=== PATIENT | male | born 1960 | race Caucasian/White ===

== ENCOUNTER 2017-09-28 22:50 | Emergency (ER) | payer OTHER ==
[2017-09-28] MEDS: methylPREDNISolone INJ 125 MG/2 ML VIAL (J2930) IM (23:51)
== END 2017-09-29 00:42 | disposition home or self-care (01) ==
LOC: M ED 22:50
DX: L27.0 Generalized skin eruption due to drugs and medicaments taken internally (principal); E78.5 Hyperlipidemia, unspecified; F17.200 Nicotine dependence, unspecified, uncomplicated; Z79.899 Other long term (current) drug therapy
CPT/HCPCS: J2930

== ENCOUNTER 2019-08-22 23:29 | Emergency (ER) | payer OTHER ==
[~2019-08-22] VITALS: Ht 177.8 cm; Wt 100.0 kg
[2019-08-22 23:29] VITALS: BP 165/78
[~2019-08-22 23:29] MED LIST: ATOR1TAB19 PO; KEFL500C17 PO; PRED20TA PO
[2019-08-23] MEDS ORDERED: LIDOCAINE 5% (LIDODERM) PATCH TD ONE
[2019-08-23] MEDS ORDERED: ACETAMINOPHEN 325 MG TAB PO ONE
[2019-08-23 00:28] LABS: APPEARANCE, URINE CLEAR (CLEAR); BACTERIA, URINE AUTO NEGATIVE (NEGATIVE); BILIRUBIN, URINE AUTO NEGATIVE (NEGATIVE); BLOOD, URINE BLOOD NEGATIVE (NEGATIVE); COLOR, URINE YELLOW (YELLOW); GLUCOSE, URINE (UA) AUTO NEGATIVE (NEGATIVE); KETONE, URINE AUTO NEGATIVE (NEGATIVE); LEUKOCYTE ESTERASE, URINE AUTO NEGATIVE (NEGATIVE); NITRITE, URINE AUTO NEGATIVE (NEGATIVE); PROTEIN, URINE AUTO NEGATIVE (NEGATIVE); RBC, URINE AUTO 5 /HPF (0-3); SPECIFIC GRAVITY URINE AUTO 1.016 (1.002-1.035); SQUAMOUS EPITHELIAL CELL UR AU 0 /HPF (0-6); UROBILINOGEN, URINE AUTO 0.2 mg/dL (0.0-2.0); WBC, URINE AUTO 2 /HPF (0-3)
[2019-08-23] MEDS ORDERED: ALEV220T22 PO (00:41)
[2019-08-23] MEDS ORDERED: LIDO5DIS41 TD (00:43)
[2019-08-23] MEDS ORDERED: ROBA750T4 PO (00:43)
--- NOTE | 2019-08-23 02:00 | REP ---
Clinical: Trauma/fall. Technique: AP, lateral, bilateral oblique, and coned-down views. Findings: Lateral view demonstrates chronic L5 spondylolysis with L5-L1 spondylolisthesis of approximately 9.5 mm. Mild/moderate multilevel degenerative changes are also noted throughout the remainder examination including marginal spurring, endplate sclerosis and disc space narrowing. No acute fracture / compression injury. Impression: 1. Chronic-appearing spondylolysis and spondylolisthesis at L5-S1. 2. Mild/moderate multilevel degenerative spondylosis. 3. No acute fracture / compression injury. Electronically Signed by Ehsan Munroe MD 08/23/2019 01:51 A
[2019-08-23] MEDS ORDERED: **NOTE PATIENT COMMENT** MISC XX ONE (12:00)
== END 2019-08-23 00:51 | disposition home or self-care (01) ==
LOC: M ED 23:29
DX: S30.0XXA Contusion of lower back and pelvis, initial encounter (principal); M25.522 Pain in left elbow; W01.0XXA Fall on same level from slipping, tripping and stumbling without subsequent striking against object, initial encounter; Y92.019 Unspecified place in single-family (private) house as the place of occurrence of the external cause; E78.5 Hyperlipidemia, unspecified; M47.817 Spondylosis without myelopathy or radiculopathy, lumbosacral region; F17.210 Nicotine dependence, cigarettes, uncomplicated; Z88.1 Allergy status to other antibiotic agents; Z88.8 Allergy status to other drugs, medicaments and biological substances; Z79.899 Other long term (current) drug therapy

== ENCOUNTER → 2020-09-03 | Outpatient (CLI) | payer SELFPAY ==
[~2020-09-03] MED LIST changes: +ALEV220T22 PO; +LIDO5DIS41 TD; +ROBA750T4 PO
== END ==
LOC: M LABSMTC 10:10
PROVIDERS: ATTEND Pediatrics
DX: Z20.822 Contact with and (suspected) exposure to COVID-19 (principal)

== ENCOUNTER → 2022-04-06 | Outpatient (CLI) | payer OTHER | LOC: M PLAIMG 06:59 | PROVIDERS: ATTEND Family Medicine | DX: M54.2 Cervicalgia (principal); M25.78 Osteophyte, vertebrae ==

== ENCOUNTER → 2022-05-13 | Outpatient (CLI) | payer OTHER | LOC: M CARPUL 11:06 | PROVIDERS: ATTEND Internal Medicine Cardiovascular Disease | DX: R06.83 Snoring (principal); R01.1 Cardiac murmur, unspecified | CPT/HCPCS: 76376; 93306; 93356; G0399 ==

== ENCOUNTER 2023-07-16 15:06 | Emergency (ER) | payer MEDICARE, OTHER ==
[~2023-07-16] VITALS: Ht 175.3 cm; Wt 97.7 kg
[2023-07-16] MEDS ORDERED: ASPI-226 (15:39)
[2023-07-16] MEDS ORDERED: PERCOCET 5MG/325MG TAB PO ONE (17:25)
[2023-07-16] MEDS ORDERED: PERC5TAB12 PO (18:00)
[2023-07-16 18:39] VITALS: BP 176/96; TEMP 97.8; O2SAT 96
== END 2023-07-16 18:41 | disposition home or self-care (01) ==
LOC: M ED 15:06
DX: S92.012A Displaced fracture of body of left calcaneus, initial encounter for closed fracture (principal); W11.XXXA Fall on and from ladder, initial encounter; I10 Essential (primary) hypertension; Z88.8 Allergy status to other drugs, medicaments and biological substances; Y92.009 Unspecified place in unspecified non-institutional (private) residence as the place of occurrence of the external cause; Y93.89 Activity, other specified; Y99.9 Unspecified external cause status; Z79.899 Other long term (current) drug therapy

== ENCOUNTER → 2023-07-20 | Outpatient (CLI) | payer MEDICARE, OTHER ==
[~2023-07-20] MED LIST changes: +ASPI-226; +PERC5TAB12 PO
== END ==
LOC: M SOG 08:09
PROVIDERS: ATTEND Physician Assistant
DX: S92.012D Displaced fracture of body of left calcaneus, subsequent encounter for fracture with routine healing (principal); M79.672 Pain in left foot; M77.32 Calcaneal spur, left foot

== ENCOUNTER → 2023-08-11 | Outpatient (CLI) | payer MEDICARE, OTHER | LOC: M SOG 14:58 | PROVIDERS: ATTEND Orthopaedic Surgery | DX: S92.002A Unspecified fracture of left calcaneus, initial encounter for closed fracture (principal); Y93.9 Activity, unspecified; Y92.9 Unspecified place or not applicable ==

== ENCOUNTER → 2023-10-06 | Outpatient (CLI) | payer MEDICARE, OTHER | LOC: M SOG 07:56 | PROVIDERS: ATTEND Physician Assistant | DX: S92.002A Unspecified fracture of left calcaneus, initial encounter for closed fracture (principal); W18.30XA Fall on same level, unspecified, initial encounter; Y92.009 Unspecified place in unspecified non-institutional (private) residence as the place of occurrence of the external cause ==

== ENCOUNTER → 2023-12-29 | Outpatient (CLI) | payer MEDICARE, OTHER | LOC: M SOG 07:53 | PROVIDERS: ATTEND Physician Assistant | DX: S92.002A Unspecified fracture of left calcaneus, initial encounter for closed fracture (principal); Z53.9 Procedure and treatment not carried out, unspecified reason ==

== ENCOUNTER → 2024-01-07 | Outpatient (CLI) | payer MEDICARE, OTHER ==
[2024-01-07 12:13] LABS: BASO % 0.5 % (0.0-1.0); EOS # 0.3 10^3/uL (0.0-0.5); EOS % 4.8 % (0.0-3.0); HEMOGLOBIN 13.7 g/dl (13.5-17.5); LYMPH % 35.8 % (24.0-44.0); MEAN CORPUSCULAR HEMOGLOBIN 30.3 pg (27.0-33.0); MEAN CORPUSCULAR HGB CONC 33.4 g/dl (32.0-36.5); MEAN CORPUSCULAR VOLUME 90.7 fl (80.0-96.0); MONO # 0.7 10^3/uL (0.0-0.8); MONO % 11.6 % (2.0-8.0); NEUTROPHILS # 2.6 10^3/uL (1.5-8.5); NEUTROPHILS % 47.1 % (36.0-66.0); PLATELET COUNT, AUTOMATED 184 10^3/uL (150-450); RED BLOOD COUNT 4.52 10^6/uL (4.30-6.10); WHITE BLOOD COUNT 5.6 10^3/uL (4.0-10.0)
[2024-01-07 12:31] LABS: HEMOGLOBIN A1c 5.3 % (4.0-6.0)
[2024-01-07 13:09] LABS: ALBUMIN 3.9 G/DL (3.2-5.2); ALKALINE PHOSPHATASE 97 U/L (46-116); ALT/SGPT 33 U/L (7.0-40); AST/SGOT 19 U/L (<34); BILIRUBIN,TOTAL 0.9 MG/DL (0.3-1.2); BLOOD UREA NITROGEN 19 MG/DL (9-23); CALCIUM LEVEL 9.2 MG/DL (8.3-10.6); CARBON DIOXIDE LEVEL 31 MMOL/L (20-31); CHLORIDE LEVEL 105 MMOL/L (98-107); CREATININE FOR GFR 0.87 MG/DL (0.70-1.30); GLOMERULAR FILTRATION RATE > 60.0 (>49); GLUCOSE, FASTING 104 MG/DL (74-106); POTASSIUM SERUM 3.9 MMOL/L (3.5-5.1); SODIUM LEVEL 140 MMOL/L (136-145); TOTAL 25(OH) VITAMIN D 54.8 NG/ML (20.0-100.0); TOTAL PROTEIN 6.7 G/DL (5.7-8.2)
== END ==
LOC: M WUC 08:38
PROVIDERS: ATTEND Orthopaedic Surgery
DX: M16.11 Unilateral primary osteoarthritis, right hip (principal); Z79.82 Long term (current) use of aspirin; Z79.899 Other long term (current) drug therapy

== ENCOUNTER → 2024-01-13 | Outpatient (CLI) | payer MEDICARE, OTHER | LOC: M SOG 13:29 | PROVIDERS: ATTEND Orthopaedic Surgery | DX: M16.11 Unilateral primary osteoarthritis, right hip (principal); M25.551 Pain in right hip ==

== ENCOUNTER 2024-01-25 11:47 | Outpatient (RCR) | payer MEDICARE, OTHER | END 2024-02-06 | LOC: M PT 11:47 | PROVIDERS: ATTEND Orthopaedic Surgery | DX: M16.11 Unilateral primary osteoarthritis, right hip (principal) ==

== ENCOUNTER 2024-05-22 09:26 | Outpatient (RCR) | payer MEDICARE, OTHER ==
[~2024-05-22 09:26] MED LIST changes: +ACET500T15 PO; -ASPI-226; +ASPI-226 PO; +ATOR40TA75 PO; +GLUCTAB7 PO; +MULT-90 PO
== END 2024-06-08 ==
LOC: M PT 09:26
PROVIDERS: ATTEND Orthopaedic Surgery
DX: M16.11 Unilateral primary osteoarthritis, right hip (principal)

== ENCOUNTER → 2024-06-09 | Outpatient (CLI) | payer MEDICARE, OTHER ==
[~2024-06-09] MED LIST changes: +CYCL5TAB PO; +GABA-1172 PO; +MELO15TA28 PO; +NORV5TAB PO
== END ==
LOC: M RAD 10:12
PROVIDERS: ATTEND Orthopaedic Surgery
DX: M16.11 Unilateral primary osteoarthritis, right hip (principal)

== ENCOUNTER → 2024-08-07 | Outpatient (CLI) | payer MEDICARE, OTHER ==
[~2024-08-07] MED LIST changes: -CYCL5TAB PO; +CYCL5TAB4 PO; +GABA-1171 PO; +LOPR1TAB6 PO
== END ==
LOC: M RAD 07:19
PROVIDERS: ATTEND Orthopaedic Surgery
DX: M16.11 Unilateral primary osteoarthritis, right hip (principal)

== ENCOUNTER 2024-08-15 07:09 | Observation (INO) | payer MEDICARE, OTHER ==
[~2024-08-15] VITALS: Ht 175.3 cm; Wt 90.4 kg
[2024-08-15] VITALS (8 sets, daily range): BP systolic 119–134; BP diastolic 71–79; TEMP 97.3–98.1; O2SAT 93–99
[2024-08-15] MEDS: TRANEXAMIC ACID 100 MG/ML 10ML VIAL IV ONE (06:00)
[~2024-08-15 07:09] MED LIST changes: +LIDOCAINE 2% 100MG/5ML SDV (FOR ANES.) As Ordered ONE; +ONDANSETRON 4MG 2ML VIAL As Ordered ONE; +ROCURONIUM BROMIDE 50MG/5ML VIAL As Ordered ONE; +SUGAMMADEX SODIUM 500 MG/5 ML VIAL (BRIDION) As Ordered ONE; +propofoL 200 MG/20 ML VIAL As Ordered ONE
[2024-08-15] MEDS ORDERED: fentaNYL 250 MCG/5 ML INJECTION As Ordered ONE (07:11)
[2024-08-15] MEDS ORDERED: MIDAZOLAM INJ 2MG/2ML VIAL As Ordered ONE (07:11)
[2024-08-15] MEDS: LR 1,000 ML IV SCH (07:20)
[2024-08-15] MEDS ORDERED: AMLO1TAB25 PO (08:16)
[2024-08-15] MEDS ORDERED: MELA5CAP2 PO (08:19)
[2024-08-15] MEDS ORDERED: ALBU8.5H INH (08:19)
[2024-08-15] MEDS ORDERED: HOME MED LIST COMPLETE! XX SCH (08:25)
[2024-08-15] MEDS: ceFAZolin SOD 2 GM in IV 1 EA IV ONE (08:58)
[2024-08-15] MEDS: TRANEXAMIC ACID 100 MG/ML 10ML VIAL As Ordered ONE (09:01)
[2024-08-15] MEDS ORDERED: ACETAMINOPHEN 1000MG/100ML IV BAG As Ordered ONE (09:10)
[2024-08-15] MEDS ORDERED: HYDROmorphone HCL 2MG/ML 1ML VIAL As Ordered ONE (10:22)
[2024-08-15] MEDS ORDERED: ePHEDrine SULFATE 25 MG/5 ML(5MG/ML) SYRINGE As Ordered ONE (11:05)
[2024-08-15] MEDS ORDERED: PHENYLephrine 500MCG 5ML (100MCG/ML) SYRINGE As Ordered ONE (11:09)
[2024-08-15] MEDS: VANCOMYCIN 1000MG/20ML VIAL As Ordered ONE (11:19)
[2024-08-15] MEDS: REK 50ML SYRINGE IA ONE (11:23)
[2024-08-15] MEDS ORDERED: fentaNYL 100 MCG/2 ML INJECTION IV PRN (11:45)
[2024-08-15] MEDS ORDERED: ONDANSETRON 4MG 2ML VIAL IV PRN ×2 (11:45→12:45)
[2024-08-15] MEDS ORDERED: oxyCODONE 5MG TAB PO PRN ×3 (12:35→14:00)
[2024-08-15] MEDS ORDERED: HYDROMORPHONE HCL 0.5 MG/ 0.5 ML SYRINGE IV PRN (12:45)
[2024-08-15] MEDS ORDERED: PROMETHAZINE 25MG/ML 1ML VIAL IV PRN (12:45)
[2024-08-15] MEDS ORDERED: SENNA 8.6 MG TAB (SENOKOT) PO PRN (14:00)
[2024-08-15] MEDS ORDERED: ALBUTEROL 90 MCG/ACT 8GM HFA INHALER INH PRN (14:00)
[2024-08-15] MEDS: ceFAZolin SOD 2 GM in IV 1 EA IV SCH (17:47)
[2024-08-15] MEDS: ACETAMINOPHEN 325 MG TAB PO SCH (17:49)
[2024-08-15] MEDS: oxyCODONE 5MG TAB PO PRN (17:50)
[2024-08-15] MEDS ORDERED: PILL CUTTER 1 EACH XX ONE (21:21)
[2024-08-15] MEDS: METOPROLOL TART 25 MG TABLET PO SCH (21:23)
[2024-08-15] MEDS: ASPIRIN 81MG ENTERIC TABLET PO SCH (21:24)
[2024-08-15] MEDS: NAPROXEN 250 MG TAB PO SCH (21:24)
[2024-08-15] MEDS: DOCUSATE SODIUM 100MG CAPSULE PO SCH (21:25)
[2024-08-16] VITALS: BP 132/71; TEMP 98.6; O2SAT 97
[2024-08-16 04:00] VITALS: BP 126/67; TEMP 97.9; O2SAT 92
[2024-08-16 07:47] LABS: HEMATOCRIT 34.7 % (42.0-52.0); HEMOGLOBIN 11.9 g/dl (13.5-17.5); MEAN CORPUSCULAR HEMOGLOBIN 30.6 pg (27.0-33.0); MEAN CORPUSCULAR HGB CONC 34.3 g/dl (32.0-36.5); MEAN CORPUSCULAR VOLUME 89.2 fl (80.0-96.0); PLATELET COUNT, AUTOMATED 173 10^3/uL (150-450); RED BLOOD COUNT 3.89 10^6/uL (4.30-6.10); WHITE BLOOD COUNT 11.4 10^3/uL (4.0-10.0)
[2024-08-16 07:57] LABS: ALBUMIN 3.2 G/DL (3.2-5.2); ALKALINE PHOSPHATASE 82 U/L (40-129); ALT/SGPT 28 U/L (7.0-40); AST/SGOT 46 U/L (<34); BILIRUBIN,TOTAL 0.7 MG/DL (0.3-1.2); BLOOD UREA NITROGEN 18 MG/DL (9-23); CALCIUM LEVEL 8.8 MG/DL (8.3-10.6); CARBON DIOXIDE LEVEL 29 MMOL/L (20-31); CHLORIDE LEVEL 104 MMOL/L (98-107); CREATININE FOR GFR 0.89 MG/DL (0.70-1.30); GLOMERULAR FILTRATION RATE > 60.0 (>49); GLUCOSE, FASTING 109 MG/DL (74-106); POTASSIUM SERUM 3.8 MMOL/L (3.5-5.1); SODIUM LEVEL 141 MMOL/L (136-145); TOTAL PROTEIN 6.3 G/DL (5.7-8.2)
[2024-08-16 08:22] VITALS: BP 101/61; TEMP 97.3; O2SAT 91
[2024-08-16] MEDS: CEFDINIR 300 MG CAP (OMNICEF) PO SCH (08:25)
[2024-08-16] MEDS: FERROUS SULFATE 325MG TAB PO SCH (08:27)
[2024-08-16] MEDS: ASCORBIC ACID 500 MG TAB PO SCH (08:27)
[2024-08-16] MEDS: ATORVASTATIN 20 MG TAB PO SCH (08:27)
[2024-08-16] MEDS: FLUBLOK(EGGFREE) TRIVAL(24-25) VACCINE PF 0.5ML SYRINGE 18YRS & OLDER IM.IMMUN ONE (08:30)
[2024-08-16] MEDS ORDERED: CEFD300CAP PO (12:13)
[2024-08-16] MEDS ORDERED: OXYC1TAB23 PO (12:13)
[2024-08-16] MEDS ORDERED: ASPI81TAEC PO (12:13)
[2024-08-16 12:32] VITALS: BP 118/68; TEMP 97.7; O2SAT 93
== END 2024-08-16 12:50 | disposition home or self-care (01) ==
LOC: M SDC 07:09 → M RR INP 14:00 → M MS5PR 15:05
PROVIDERS: ADMIT Orthopaedic Surgery; ATTEND Orthopaedic Surgery
DX: M16.11 Unilateral primary osteoarthritis, right hip (principal); Z87.891 Personal history of nicotine dependence; E78.00 Pure hypercholesterolemia, unspecified; I45.10 Unspecified right bundle-branch block; Z79.82 Long term (current) use of aspirin; Z79.899 Other long term (current) drug therapy; Z88.8 Allergy status to other drugs, medicaments and biological substances; M43.10 Spondylolisthesis, site unspecified; Z23 Encounter for immunization
CPT/HCPCS: 27130; 36415; 72170; 80053; 85027; 88300; 90673; 96374; 96376; 97116; 97161; 97165; 97530; C1776; G0008; G0378; J0131; J0171; J0690; J1100; J1171; J1885; J2250; J2371; J2405; J2795; J3010; J3370

== ENCOUNTER → 2024-08-28 | Outpatient (CLI) | payer MEDICARE, OTHER ==
[~2024-08-28] MED LIST changes: +ALBU8.5H INH; +AMLO1TAB25 PO; +ASPI81TAEC PO; +CEFD300CAP PO; -LIDOCAINE 2% 100MG/5ML SDV (FOR ANES.) As Ordered ONE; +MELA5CAP2 PO; -ONDANSETRON 4MG 2ML VIAL As Ordered ONE; +OXYC1TAB23 PO; -ROCURONIUM BROMIDE 50MG/5ML VIAL As Ordered ONE; -SUGAMMADEX SODIUM 500 MG/5 ML VIAL (BRIDION) As Ordered ONE; -propofoL 200 MG/20 ML VIAL As Ordered ONE
== END ==
LOC: M SOG 07:50
PROVIDERS: ATTEND Orthopaedic Surgery
DX: Z47.1 Aftercare following joint replacement surgery (principal); Z96.641 Presence of right artificial hip joint

== ENCOUNTER 2024-09-07 12:45 | Outpatient (RCR) | payer MEDICARE, OTHER | END 2024-09-08 | LOC: M PT 12:45 | PROVIDERS: ATTEND Orthopaedic Surgery | DX: M16.11 Unilateral primary osteoarthritis, right hip (principal) ==

== ENCOUNTER 2024-10-03 10:24 | Outpatient (RCR) | payer MEDICARE, OTHER | END 2024-10-06 | LOC: M PT 10:24 | PROVIDERS: ATTEND Orthopaedic Surgery | DX: M16.11 Unilateral primary osteoarthritis, right hip (principal) ==

== ENCOUNTER → 2024-10-16 | Outpatient (CLI) | payer MEDICARE, OTHER | LOC: M SOG 07:51 | PROVIDERS: ATTEND Orthopaedic Surgery | DX: Z47.1 Aftercare following joint replacement surgery (principal); Z96.641 Presence of right artificial hip joint ==

== ENCOUNTER 2024-10-24 12:45 | Outpatient (RCR) | payer MEDICARE, OTHER | END 2024-11-06 | LOC: M PT 12:45 | PROVIDERS: ATTEND Orthopaedic Surgery | DX: M16.11 Unilateral primary osteoarthritis, right hip (principal) ==